=== PATIENT | male | born 1960 | race Caucasian/White ===

== ENCOUNTER 2020-05-25 12:00 | Emergency (ER) | payer BC ==
[~2020-05-25] VITALS: Wt 79.4 kg
[~2020-05-25 12:00] MED LIST: ASPIRIN81 M1 PO; ATORVASTATIN CA20 M1 PO; HYDROCODONE BIT1 T20 PO; LEVOFLOXACIN500 MG PO; PRILOSEC40 M1 PO
== END 2020-05-25 15:08 | disposition home or self-care (01) ==
LOC: ED 12:00
DX: S80.12XA Contusion of left lower leg, initial encounter (principal); E78.00 Pure hypercholesterolemia, unspecified; Z79.899 Other long term (current) drug therapy; Z79.82 Long term (current) use of aspirin; X58.XXXA Exposure to other specified factors, initial encounter; Y93.89 Activity, other specified; Y92.89 Other specified places as the place of occurrence of the external cause; Y99.8 Other external cause status